=== PATIENT | male | born 1965 | race Caucasian/White ===

== ENCOUNTER 2021-04-07 12:47 | Emergency (ER) | payer BC ==
[2021-04-07] MEDS ORDERED: Sodium Chloride 0.9% 2.5 ML Syringe FLUSH PRN (12:53)
[2021-04-07] MEDS ORDERED: Sodium Chloride 0.9% 10 ML Syringe FLUSH PRN (12:53)
[2021-04-07] MEDS ORDERED: Sodium Chloride 0.9% 1,000 ML IV ONE (12:53)
[2021-04-07] MEDS ORDERED: Ondansetron 4 MG/2 ML SDV IVPUSH ONE (13:54)
[2021-04-07] MEDS ORDERED: Ketorolac 30 MG/ML SDV IVPUSH ONE (13:54)
--- NOTE | 2021-04-07 13:56 | EDM.PDOC ---
ED HPI GENERAL MEDICAL PROBLEM - General Chief Complaint: Genitourinary Problem Stated Complaint: PASSING KIDNEY STONE Time Seen by Provider: 04/07/21 13:34 - History of Present Illness INITIAL COMMENTS - FREE TEXT/NARRATIVE: History of present illness: [] Patient is severe pain in the left flank. It started last night. It is worse as time progresses. It is severe and constant. Nothing makes it better or worse. It seems to cause him to rock 'n' roll move around. That does not make it any worse and he feels the urge to do so. He is nauseated without vomiting. There is no diaphoresis. It reminds him of prior kidney stone. Patient has a history of laminectomy in his back and kidney stones. He is never had any problem with addiction after he required postsurgical narcotic pain medicine. Review of systems: As per history of present illness and below otherwise all systems reviewed and negative. Past medical history: As per history of present illness and as reviewed below otherwise noncontributory. Surgical history: As per history of present illness and as reviewed below otherwise noncontributory. Social history: No reported history of drug or alcohol abuse. Family history: As per history of present illness and as reviewed below otherwise noncontributory. Physical exam: Constitutional - well developed, well-nourished and in acute distress HEENT - normocephalic, no evidence of trauma - external nose and mouth normal - no mass in neck and no JVD - mucosae moist EYES - full EOM, PERRL, no icterus - no evidence of inflammation, injection, or drainage Respiratory - no respiratory distress, equal bilateral expansion, lungs clear to auscultation and no abnormal lung sounds Cardiovascular - Regular Rhythm with S1 and S2 appreciated and no murmur, gallop or rub. GI - abdomen soft without distension or organomegaly - normal bowel sounds - no guard or rebound Musculoskeletal no gross deformity of long bones or joints - no tenderness, swelling or edema Neurologic - Alert and oriented times four - CN II-XII grossly intact - motor sensory and coordination symmetrically normal Psychiatric - appropriate mood and affect with normal thought content Hematologic - No petechiae or purpura - mucosa appropriate color and sclera not pale - normal nail bed color and refill Integument - no rash or evidence of trauma - normal turgor Diagnostics: [] Therapeutics: [] Impression: [] Plan: [] Definitive disposition and diagnosis as appropriate pending reevaluation and review of above. Back Pain Score (Numeric/FACES): 10 - Related Data Allergies Allergy/AdvReac Type Severity Reaction Status Date / Time Penicillins Allergy rashe Verified 04/07/21 13:23 Home Meds: Home Meds Dextroamphetamine/Amphetamine [Adderall 20 mg Tablet] 20 mg PO DAILY 04/07/21 [History] Social & Family History - Tobacco Use Second Hand Smoke Exposure: No - Caffeine Use Caffeine Use: Reports: None - Recreational Drug Use Recreational Drug Use: No ED ROS GENERAL - Review of Systems Review Of Systems: Comprehensive ROS is negative, except as noted in HPI. ED EXAM, GENERAL - Physical Exam Exam: See Below Free Text/Narrative:: My physical exam is in the HPI Course - Vital Signs Text/Narrative:: CT revealed stones in the kidney but not in the ureter with no obstruction. Last Recorded V/S: Last Vital Signs Temp 36.7 C 04/07/21 13:20 Pulse 83 04/07/21 13:20 Resp 20 04/07/21 13:20 BP 120/86 04/07/21 13:20 Pulse Ox 97 04/07/21 13:20 - Orders/Labs/Meds Orders: Active Orders 24 hr Category Date Time Status UA W/DOLORES RFLX IF INDICATED [URIN] Stat Lab 04/07/21 12:53 Ordered Sodium Chloride 0.9% [Saline Flush] Med 04/07/21 12:53 Active 10 ml FLUSH ASDIRECTED PRN Sodium Chloride 0.9% [Saline Flush] Med 04/07/21 12:53 Active 2.5 ml FLUSH ASDIRECTED PRN Saline Lock Insert [OM.PC] Stat Oth 04/07/21 12:53 Ordered Medication Orders Sodium Chloride (Sodium Chloride 0.9% 10 Ml Syringe) 10 ml FLUSH ASDIRECTED PRN PRN Reason: Keep Vein Open Last Admin: 04/07/21 13:55 Dose: 10 ml Documented by: CRISTINA Sodium Chloride (Sodium Chloride 0.9% 2.5 Ml Syringe) 2.5 ml FLUSH ASDIRECTED PRN PRN Reason: Keep Vein Open Last Admin: 04/07/21 13:55 Dose: 2.5 ml Documented by: CRISTINA Labs: Laboratory Tests 04/07/21 04/07/21 Range/Units 13:50 13:50 WBC 9.27 (4.0-11.0) K/uL RBC 5.18 (4.50-5.90) M/uL Hgb 16.7 (13.0-17.0) g/dL Hct 47.8 (38.0-50.0) % MCV 92.3 (80.0-98.0) fL MCH 32.2 H (27.0-32.0) pg MCHC 34.9 (31.0-37.0) g/dL RDW Std Deviation 47.2 (28.0-62.0) fl RDW Coeff of Joshua 14 (11.0-15.0) % Plt Count 181 (150-400) K/uL MPV 11.00 (7.40-12.00) fL Neut % (Auto) 57.7 (48.0-80.0) % Lymph % (Auto) 29.0 (16.0-40.0) % Woods % (Auto) 5.1 (0.0-15.0) % Eos % (Auto) 7.6 H (0.0-7.0) % Baso % (Auto) 0.6 (0.0-1.5) % Neut # (Auto) 5.4 (1.4-5.7) K/uL Lymph # (Auto) 2.7 H (0.6-2.4) K/uL Woods # (Auto) 0.5 (0.0-0.8) K/uL Eos # (Auto) 0.7 (0.0-0.7) K/uL Baso # (Auto) 0.1 (0.0-0.1) K/uL Nucleated RBC % 0.0 /100WBC Nucleated RBCs # 0 K/uL Sodium 142 (136-148) mmol/L Potassium 4.1 (3.5-5.1) mmol/L Chloride 105 (98-107) mmol/L Carbon Dioxide 27.6 (21.0-32.0) mmol/L BUN 18 (7.0-18.0) mg/dL Creatinine 0.9 (0.8-1.3) mg/dL Est Cr Clr Drug Dosing 99.40 mL/min Estimated GFR (MDRD) > 60.0 ml/min Glucose 86 (74-106) mg/dL Calcium 9.1 (8.5-10.1) mg/dL Meds: Medications Generic Name Dose Route Start Last Admin Trade Name Freq PRN Reason Stop Dose Admin Sodium Chloride 10 ml 04/07/21 12:53 04/07/21 13:55 Sodium Chloride 0.9% 10 Ml Syringe FLUSH 10 ml ASDIRECTED PRN Administration Keep Vein Open Sodium Chloride 2.5 ml 04/07/21 12:53 04/07/21 13:55 Sodium Chloride 0.9% 2.5 Ml Syringe FLUSH 2.5 ml ASDIRECTED PRN Administration Keep Vein Open Discontinued Medications Generic Name Dose Route Start Last Admin Trade Name Freq PRN Reason Stop Dose Admin Hydromorphone HCl 1 mg 04/07/21 14:50 Hydromorphone 2 Mg/Ml Syringe IVPUSH 04/07/21 14:51 ONETIME ONE Sodium Chloride 1,000 mls @ 999 mls/hr 04/07/21 12:53 04/07/21 13:55 Normal Saline IV 04/07/21 13:53 999 mls/hr .Bolus ONE Administration Ketorolac Tromethamine 15 mg 04/07/21 13:54 04/07/21 14:10 Ketorolac 30 Mg/Ml Sdv IVPUSH 04/07/21 13:55 15 mg ONETIME ONE Administration Ondansetron HCl 4 mg 04/07/21 13:54 04/07/21 14:11 Ondansetron 4 Mg/2 Ml Sdv IVPUSH 04/07/21 13:55 4 mg ONETIME ONE Administration - Re-Assessments/Exams Free Text/Narrative Re-Assessment/Exam: 04/07/21 14:52 Pain medicine has helped a little bit. Departure - Departure Time of Disposition: 15:24 Disposition: Home, Self-Care 01 Condition: Good Clinical Impression: Ureteral colic - Discharge Information Instructions: Kidney Stones, [id number] Forms: ED Department Discharge Additional Instructions: It appears she passed a kidney stone. You have 2 more in the kidney that may pass in the ureter. When in the ureter they will cause this kind of pain. Strain your urine and follow-up with urology. There is a urologist in [facility] named Helio Oneil and there is a teeam of urologists at [facility]. Return if worse or if there is painf rom kidney stone and high fever. [facility] [address] [place] [address] [facility] [address] [place] [address] The following information is given to patients seen in the emergency department who are being discharged to home. This information is to outline your options for follow-up care. We provide all patients seen in our emergency department with a follow-up referral. The need for follow-up, as well as the timing and circumstances, are variable depending upon the specifics of your emergency department visit. If you don't have a primary care physician on staff, we will provide you with a referral. We always advise you to contact your personal physician following an emergency department visit to inform them of the circumstance of the visit and for follow-up with them and/or the need for any referrals to a consulting specialist. The emergency department will also refer you to a specialist when appropriate. This referral assures that you have the opportunity for follow-up care with a specialist. All of these measure are taken in an effort to provide you with optimal care, which includes your follow-up. Under all circumstances we always encourage you to contact your private physician who remains a resource for coordinating your care. When calling for follow-up care, please make the office aware that this follow-up is from your recent emergency room visit. If for any reason you are refused follow-up, please contact the [facility] Emergency Department at and asked to speak to the emergency department charge nurse. Sepsis Event Note (ED) - Evaluation Sepsis Screening Result: No Definite Risk - Focused Exam Vital Signs: Vital Signs Temp Pulse Resp BP Pulse Ox 04/07/21 13:20 36.7 C 83 20 120/86 97 - My Orders Last 24 Hours: My Active Orders 04/07/21 12:53 UA W/DOLORES RFLX IF INDICATED [URIN] Stat Sodium Chloride 0.9% [Saline Flush] 10 ml FLUSH ASDIRECTED PRN Sodium Chloride 0.9% [Saline Flush] 2.5 ml FLUSH ASDIRECTED PRN Saline Lock Insert [OM.PC] Stat - Assessment/Plan Last 24 Hours: My Active Orders 04/07/21 12:53 UA W/DOLORES RFLX IF INDICATED [URIN] Stat Sodium Chloride 0.9% [Saline Flush] 10 ml FLUSH ASDIRECTED PRN Sodium Chloride 0.9% [Saline Flush] 2.5 ml FLUSH ASDIRECTED PRN Saline Lock Insert [OM.PC] Stat
[2021-04-07 14:30] LABS: BLOOD UREA NITROGEN,BUN 18 mg/dL (7.0-18.0); CARBON DIOXIDE,CO2 27.6 mmol/L (21.0-32.0); CHLORIDE,CL 105 mmol/L (98-107); GLUCOSE RANDOM 86 mg/dL (74-106); POTASSIUM,K 4.1 mmol/L (3.5-5.1); SODIUM,NA 142 mmol/L (136-148)
[2021-04-07] MEDS ORDERED: HYDROmorphone 2 MG/ML Syringe IVPUSH ONE (14:50)
--- NOTE | 2021-04-07 15:14 | CT ---
INDICATION: Colicky left-sided abdominal pain. History of urinary tract calculi. TECHNIQUE: Noncontrast CT of the abdomen and pelvis. COMPARISON: None. FINDINGS: The unenhanced liver, spleen, pancreas, gallbladder, both adrenal glands, and the right kidney are within normal limits. 3 mm nonobstructing stone lower pole left kidney image 82 series 205. There is an addition 1 mm nonobstructing stone in the mid left kidney image 79 series 205. No stones along the course of the ureters or within the urinary bladder calcified pelvic phleboliths. Minimal prostatic calcification. Minimal calcification within a normal caliber aorta and iliac arteries. Normal inferior vena cava. Normal appendix. No diverticular disease. No acute inflammatory process identified. The small and large bowel are negative for obstruction or ileus. The stomach and duodenum although largely decompressed are within normal limits. Benign sclerosis along the sacroiliac joints right greater than left. Probable bone graft donor site posterior left iliac wing. 3 level posterior lumbar spine fusion L2-L4 with bilateral pedicle screws. Right sided posterior paraspinal lumbar stimulation pack. IMPRESSION : 1. Two tiny nonobstructing left renal stones. 2. Scattered vascular calcification in the abdomen and pelvis. 3. Postsurgical change of the lumbar spine. Please note that all CT scans at this facility use dose modulation, iterative reconstruction, and/or weight-based dosing when appropriate to reduce radiation dose to as low as reasonably achievable. Dictated by Asutin David MD @ 04/07/2021 3:12:35 PM (Electronically Signed)
== END 2021-04-07 15:30 | disposition home or self-care (01) ==
LOC: MW.ED 12:47
DX: N20.0 Calculus of kidney (principal); Z88.0 Allergy status to penicillin; Z98.890 Other specified postprocedural states
CPT/HCPCS: 36415; 74176; 80048; 85025; 96374; 96375; 99284; J1170; J1885; J2405; J7030

== ENCOUNTER 2021-04-08 04:31 | Emergency (ER) | payer BC ==
[2021-04-08] MEDS ORDERED: Ketorolac 30 MG/ML SDV IM ONE (04:45)
== END 2021-04-08 05:40 | disposition home or self-care (01) ==
LOC: MW.ED 04:31
DX: N20.0 Calculus of kidney (principal); Z88.0 Allergy status to penicillin
CPT/HCPCS: 81003; 96372; 99284; J1885